=== PATIENT | male | born 1970 | race Caucasian/White ===

== ENCOUNTER 2017-06-05 19:51 | Emergency (ER) | payer OTHER ==
[2017-06-05 20:04] VITALS: TEMP 98.6
[2017-06-05] MEDS ORDERED: SODIUM CHLORIDE 0.9% 1,000 ML IV STA (20:36)
[2017-06-05] MEDS ORDERED: KETOROLAC 30 MG/ML 1 ML VIAL IVP STA (20:36)
--- NOTE | 2017-06-05 20:39 | ED ---
Abdominal Pain HPI - General Chief Complaint: Abdominal Pain Stated Complaint: lower right abdominal pain Time Seen by Provider: 06/05/17 20:30 Source: patient Mode of arrival: ambulatory Limitations: no limitations - History of Present Illness Initial Comments: 46-year-old male patient presents to the emergency department today for complaints of right flank pain. Patient states this started around 1630 this afternoon and lasted until around 1930. He states around 1930 the pain subsided somewhat. States he still has a dull ache in the right flank however the sharp severe pain has on away. He states he did have a similar episode approximate one week ago but it didn't last as long. He states his urine may have been darker. He denies any urinary retention. Denies any frequency or urgency. He denies any fevers or chills. States he did become nauseated with the pain but did not vomit. He denies any constipation or diarrhea. Denies any significant past medical history or use of medications. Patient denies any recent rash, fever, chills, shortness breath, chest pain, numbness, tingling, dizziness, weakness, headache, visual changes, or any other complaints. - Related Data Home Medications Medication Instructions Recorded Confirmed Omeprazole Magnesium [PriLOSEC OTC] 20 mg PO DAILY 06/05/17 06/05/17 Thrive 1 tab PO DAILY 06/05/17 06/05/17 Previous Rx's Medication Instructions Recorded Hydrocodone/Acetaminophen [[place] 1 tab PO Q6HR PRN #15 tab 06/05/17 5-325] Ondansetron [Zofran ODT] 4 mg PO Q8HR PRN #10 tab 06/05/17 Tamsulosin HCl [Flomax] 0.4 mg PO DAILY #7 cap 06/05/17 Allergies Allergy/AdvReac Type Severity Reaction Status Date / Time No Known Allergies Allergy Verified 06/05/17 20:19 Review of Systems ROS Statement: Those systems with pertinent positive or pertinent negative responses have been documented in the HPI. ROS Other: All systems not noted in ROS Statement are negative. Past Medical History Past Medical History: No Reported History History of Any Multi-Drug Resistant Organisms: None Reported Past Surgical History: Orthopedic Surgery Additional Past Surgical History / Comment(s): right hand Past Psychological History: No Psychological Hx Reported Smoking Status: Never smoker Past Alcohol Use History: Rare Past Drug Use History: Marijuana General Exam Limitations: no limitations General appearance: alert, in no apparent distress, other (This is a well- developed, obese male patient no acute distress. Vital signs upon presentation are temperature 98.6F, pulse 71, respirations 18, blood pressure 179/81, pulse ox 99% on room air.) Eye exam: Present: normal appearance, PERRL, EOMI. Absent: scleral icterus, conjunctival injection, periorbital swelling ENT exam: Present: normal exam, normal oropharynx, mucous membranes moist Respiratory exam: Present: normal lung sounds bilaterally. Absent: respiratory distress, wheezes, rales, rhonchi, stridor Cardiovascular Exam: Present: regular rate, normal rhythm, normal heart sounds. Absent: systolic murmur, diastolic murmur, rubs, gallop, clicks GI/Abdominal exam: Present: soft, normal bowel sounds. Absent: distended, tenderness, guarding, rebound, rigid Back exam: Present: normal inspection, CVA tenderness (R). Absent: CVA tenderness (L) Neurological exam: Present: alert, oriented X3, CN II-XII intact Psychiatric exam: Present: normal affect, normal mood Skin exam: Present: warm, dry, intact, normal color. Absent: rash Course Vital Signs 06/05/17 06/05/17 20:01 22:21 Temperature 98.6 F 98.6 F Pulse Rate 71 80 Respiratory 18 16 Rate Blood Pressure 179/81 156/78 O2 Sat by Pulse 99 98 Oximetry Medical Decision Making - Medical Decision Making 46-year-old male patient presented to the emergency department today for complaints of right flank pain. Physical examination did reveal some mild right flank tenderness. Labs reviewed and did reveal an elevated white blood cell count is 16.9, neutrophils are 14.9, creatinine was 1.31, urinalysis showed 1+ protein, large amount of blood, greater than 182 red blood cells, occasional amorphous sediment, occasional urine mucus, and occasional urine sperm. CT of the abdomen and pelvis was obtained and did show 5 mm stone in the right proximal ureter, right-sided hydronephrosis, and mild perinephric edema. I did discuss findings with the patient. Did offer patient admission at this time for IV fluids and pain management, he declines. He is requesting to be discharged. Patient will be started on Flomax, [place], and Zofran. He is instructed to increase fluids. He is instructed to follow-up with urology as soon as possible. He is instructed to return here immediately for any new, worsening, or concerning symptoms. He verbalizes understanding and agrees with this plan. - Lab Data Result diagrams: 06/05/17 20:30 06/05/17 20:30 Lab Results 06/05/17 06/05/17 06/05/17 Range/Units 20:30 20:30 20:30 WBC 16.9 H (3.8-10.6) k/uL RBC 5.08 (4.30-5.90) m/uL Hgb 15.1 (13.0-17.5) gm/dL Hct 45.4 (39.0-53.0) % MCV 89.3 (80.0-100.0) fL MCH 29.7 (25.0-35.0) pg MCHC 33.3 (31.0-37.0) g/dL RDW 12.6 (11.5-15.5) % Plt Count 178 (150-450) k/uL Neutrophils % 88 % Lymphocytes % 6 % Monocytes % 4 % Eosinophils % 1 % Basophils % 0 % Neutrophils # 14.9 H (1.3-7.7) k/uL Lymphocytes # 1.0 (1.0-4.8) k/uL Monocytes # 0.8 (0-1.0) k/uL Eosinophils # 0.2 (0-0.7) k/uL Basophils # 0.0 (0-0.2) k/uL Sodium 143 (137-145) mmol/L Potassium 4.2 (3.5-5.1) mmol/L Chloride 106 (98-107) mmol/L Carbon Dioxide 26 (22-30) mmol/L Anion Gap 11 mmol/L BUN 14 (9-20) mg/dL Creatinine 1.31 H (0.66-1.25) mg/dL Est GFR (MDRD) Af Amer >60 (>60 ml/min/1.73 sqM) Est GFR (MDRD) Non-Af 59 (>60 ml/min/1.73 sqM) Glucose 111 H (74-99) mg/dL Calcium 10.0 (8.4-10.2) mg/dL Total Bilirubin 0.4 (0.2-1.3) mg/dL AST 37 (17-59) U/L ALT 48 (21-72) U/L Alkaline Phosphatase 104 (38-126) U/L Total Protein 7.4 (6.3-8.2) g/dL Albumin 4.4 (3.5-5.0) g/dL Amylase 87 (30-110) U/L Lipase 59 (23-300) U/L Urine Color Yellow Urine Appearance Turbid (Clear) Urine pH 7.0 (5.0-8.0) Ur Specific [place] 1.018 (1.001-1.035) Urine Protein 1+ H (Negative) Urine Glucose (UA) Negative (Negative) Urine Ketones Negative (Negative) Urine Blood Large H (Negative) Urine Nitrite Negative (Negative) Urine Bilirubin Negative (Negative) Urine Urobilinogen <2.0 (<2.0) mg/dL Ur Leukocyte Esterase Negative (Negative) Urine RBC >182 H (0-5) /hpf Amorphous Sediment Occasional H (None) /hpf Urine Mucus Occasional H (None) /hpf Urine Sperm Occasional H (None) /hpf - Radiology Data Radiology results: report reviewed, image reviewed CT the abdomen and pelvis without contrast was obtained, report was reviewed in its entirety. Impression by Dr. Nixon shows small calculus obstructing the right upper collecting system in the proximal right ureter. Normal appendix. Of note is right-sided hydronephrosis and mild. Nephric edema. Calculus is 5 mm in the proximal right ureter. Disposition Clinical Impression: Kidney stone on right side, Hydronephrosis, right, Elevated serum creatinine Disposition: HOME SELF-CARE Condition: Good Instructions: Kidney Stones (ED), How to Strain Your Urine (ED), Hydronephrosis (ED) Additional Instructions: Increase fluids especially water. Take medications as directed. Follow-up with urology as soon as possible. Return here immediately for any new, worsening, or concerning symptoms. Prescriptions: Hydrocodone/Acetaminophen [[place] 5-325] 1 tab PO Q6HR PRN #15 tab PRN Reason: Pain Ondansetron [Zofran ODT] 4 mg PO Q8HR PRN #10 tab PRN Reason: Nausea Tamsulosin HCl [Flomax] 0.4 mg PO DAILY #7 cap Referrals: Elgin Gardner MD [Primary Care Provider] - 1-2 days Matthew Dow MD [STAFF PHYSICIAN] - 1-2 days Time of Disposition: 22:04
[2017-06-05 20:59] LABS: Basophils % (A) 0 %; Eosinophils # (A) 0.2 k/uL (0-0.7); Eosinophils % (A) 1 %; HCT 45.4 % (39.0-53.0); HGB 15.1 gm/dL (13.0-17.5); Lymphocytes % (A) 6 %; MCH 29.7 pg (25.0-35.0); MCHC 33.3 g/dL (31.0-37.0); MCV 89.3 fL (80.0-100.0); Mean Platelet Volume 7.5; Monocytes # (A) 0.8 k/uL (0-1.0); Monocytes % (A) 4 %; Neutrophils # (A) 14.9 k/uL (1.3-7.7); Neutrophils % (A) 88 %; Platelet Count 178 k/uL (150-450); RBC 5.08 m/uL (4.30-5.90); RDW 12.6 % (11.5-15.5); WBC 16.9 k/uL (3.8-10.6)
[2017-06-05 21:05] LABS: Amorphous Sediment,Urine Occasional /hpf; Appearance,Urine Turbid (Clear); Bilirubin,Urine Negative (Negative); Blood,Urine Large (Negative); Color,Urine Yellow; Glucose,Urine (UA) Negative (Negative); Ketones,Urine Negative (Negative); Leukocyte Esterase,Urine Negative (Negative); Mucus,Urine Occasional /hpf; Nitrite,Urine Negative (Negative); Protein,Urine 1+ (Negative); RBC,Urine >182 /hpf (0-5); Specific Gravity,Urine 1.018 (1.001-1.035); Sperm,Urine Occasional /hpf; Urobilinogen,Urine <2.0 mg/dL (<2.0)
[2017-06-05 21:09] LABS: ALT 48 U/L (21-72); AST 37 U/L (17-59); Albumin 4.4 g/dL (3.5-5.0); Alkaline Phosphatase 104 U/L (38-126); Amylase 87 U/L (30-110); Anion Gap 11 mmol/L; Blood Urea Nitrogen 14 mg/dL (9-20); Carbon Dioxide 26 mmol/L (22-30); Chloride 106 mmol/L (98-107); Glucose 111 mg/dL (74-99); Lipase 59 U/L (23-300); Potassium 4.2 mmol/L (3.5-5.1); Sodium 143 mmol/L (137-145); Total Bilirubin 0.4 mg/dL (0.2-1.3); Total Protein 7.4 g/dL (6.3-8.2)
--- NOTE | 2017-06-05 21:37 | CT ---
EXAMINATION TYPE: CT abdomen pelvis wo con DATE OF EXAM: 06/05/2017 COMPARISON: NONE HISTORY: Right flank pain. CT DLP: 1257.7 mGycm Automated exposure control for dose reduction was used. TECHNIQUE: Helical acquisition of images was performed from the lung bases through the pelvis. FINDINGS: Lung bases are clear. There is no pleural effusion. Liver spleen pancreas gallbladder appear normal. Bile ducts are not dilated. There is no adrenal mass. Kidneys have normal size. There is right-sided hydronephrosis and mild rustam nephric edema. There is a 5 mm calculus in the proximal right ureter. There is no ascites. There is no sign of free air. Left kidney appears normal. I see no intestinal wa ll thickening. There are no dilated loops. Appendix appears normal. Bladder distends smoothly. There is no evidence of pelvic mass. There is no free fluid in the pelvis. Bony structures appear intact. T here are spondylotic changes in the lumbar spine. IMPRESSION: SMALL CALCULUS OBSTRUCTING THE RIGHT UPPER COLLECTING SYSTEM IN THE PROXIMAL RIGHT URETER. NORMAL PANFILO ENDIX.
[2017-06-05] MEDS ORDERED: TAMSULOSIN 0.4 MG CAP.ER.24H PO STA (22:01)
[2017-06-05] MEDS ORDERED: ONDANSETRON 4 MG ODT STARTER PACK 2 TAB BTL PO STA (22:01)
[2017-06-05] MEDS ORDERED: ACET/COD 300 MG/30 MG STARTER PACK 6 TAB BTL PO STA (22:01)
[2017-06-05 22:22] VITALS: BP 156/78; PULSE 80; RESP 16
== END 2017-06-05 22:21 | disposition home or self-care (01) ==
LOC: EC 19:51
DX: N13.2 Hydronephrosis with renal and ureteral calculous obstruction (principal); R79.89 Other specified abnormal findings of blood chemistry; Z79.899 Other long term (current) drug therapy
CPT/HCPCS: 36415; 80053; 82150; 83690; 85025; 81001; 74176; 99284; 96374; 96361; J1885; S0119

== ENCOUNTER 2017-06-15 20:47 | Emergency (ER) | payer OTHER ==
[2017-06-15 20:59] VITALS: TEMP 98.5
--- NOTE | 2017-06-15 21:31 | ED ---
Lower Extremity Injury HPI - General Chief Complaint: Extremity Injury, Lower Stated Complaint: Ankle injury Time Seen by Provider: 06/15/17 21:00 Source: patient, RN notes reviewed Mode of arrival: wheelchair Limitations: no limitations - History of Present Illness Initial Comments: This is a 46-year-old male who presents to the emergency department with chief complaint of right ankle injury. Patient states that he slipped on ice approximately 20 minutes prior to arrival and twisted his right ankle. at bedside states that patient's left foot was pointed forward and his right foot was pointed out to the right after his fall. Patient states pain is localized to the distal dixon area. He states he is unable to ambulate due to pain. Denies any other injuries or trauma. Patient declines pain medication, stating that he had approximately 10 drinks prior to arrival so is not experiencing any pain. Denies fever, chills, chest pain, shortness of breath, abdominal pain, nausea or vomiting, constipation or diarrhea, dysuria or hematuria, numbness or tingling, headache or vision changes. - Related Data Home Medications Medication Instructions Recorded Confirmed Omeprazole Magnesium [PriLOSEC OTC] 20 mg PO DAILY 06/05/17 06/05/17 Thrive 1 tab PO DAILY 06/05/17 06/05/17 Previous Rx's Medication Instructions Recorded Hydrocodone/Acetaminophen [[place] 1 tab PO Q6HR PRN #15 tab 06/05/17 5-325] Ondansetron [Zofran ODT] 4 mg PO Q8HR PRN #10 tab 06/05/17 Tamsulosin HCl [Flomax] 0.4 mg PO DAILY #7 cap 06/05/17 HYDROcodone/APAP 5-325MG [[place] 5] 1 each PO Q6HR PRN #12 tab 06/15/17 Allergies Allergy/AdvReac Type Severity Reaction Status Date / Time No Known Allergies Allergy Verified 06/15/17 20:59 Review of Systems ROS Statement: Those systems with pertinent positive or pertinent negative responses have been documented in the HPI. ROS Other: All systems not noted in ROS Statement are negative. Past Medical History Past Medical History: No Reported History History of Any Multi-Drug Resistant Organisms: None Reported Past Surgical History: Orthopedic Surgery Additional Past Surgical History / Comment(s): right hand Past Psychological History: No Psychological Hx Reported Smoking Status: Never smoker Past Alcohol Use History: Rare Past Drug Use History: Marijuana General Exam - General Exam Comments Initial Comments: General: Awake and alert, well-developed; in no apparent distress. is at bedside. Patient is in a wheelchair and unable to ambulate. HEENT: Head atraumatic, normocephalic. Pupils are equal, round and reactive to light. Extraocular movements intact. Oropharynx moist without erythema or exudate. Neck: Supple. Normal ROM. Cardiovascular: Regular rate and rhythm. No murmurs, rubs or gallops. Chest symmetrical. Respiratory: Lungs clear to auscultation bilaterally. No wheezes, rales or rhonchi. Normal respiratory effort with no use of accessory muscles. Musculoskeletal: Limited range of motion of the right ankle due to pain. There is tenderness on palpation and swelling of right distal dixon. No medial or lateral malleoli tenderness. Sensation is intact. Pedal pulses are 2+ equal and palpable bilaterally. Skin: [place], warm and dry without rashes or lesions. Neurological: Alert and oriented x3. CN II-XII grossly intact. Speech is fluent and answers are appropriate. No focal neuro deficits. Psychiatric: Normal mood and affect. No overt signs of depression or anxiety noted. Limitations: no limitations Course Vital Signs 06/15/17 20:57 Temperature 98.5 F Pulse Rate 78 Respiratory 18 Rate Blood Pressure 144/73 O2 Sat by Pulse 98 Oximetry Procedures - Orthopedic Splinting/Casting Injury #1 Side: right Lower Extremity Injury Location: short leg Lower Extremity Immobilizer: posterior splint, stirrup splint, synthetic pre- padded splint Additional Comments: Stirrup and posterior OCL splints were placed. Patient tolerated well and is neurovascularly intact. Medical Decision Making - Medical Decision Making This is a 46-year-old male who presents to the emergency department for evaluation of right ankle injury. Patient sustained spiral fractures to his distal tibia and proximal fibula. Posterior and ankle stirrup OCL short-leg splints were placed and patient tolerated well without complication. He is neurovascularly intact. Patient is to [facility] as soon as possible. He is provided with a prescription for crutches as well as pain medication. He is provided with the disc of his x-rays. Patient will be discharged home. He is in no acute distress. This case was discussed with attending physician, Dr. Clayton. Patient is in agreement with plan and voices understanding. All questions were answered. - Radiology Data Radiology results: report reviewed X-ray right ankle findings: There is a spiral fracture of the distal shaft of the tibia. Ankle mortise is anatomic. There is no dislocation. There is possible 5 mm nondisplaced chip fracture of the medial malleolus. There are plantar and Achilles calcaneal spurs. Impression: Spiral fracture of the tibia. Possible tiny chip fracture of the medial malleolus. X-ray right tibia and fibula findings: There is a spiral fracture of the distal shaft of the tibia. There is displacement up to 7 mm laterally of the distal fragment. There is an oblique spiral fracture of the proximal shaft of the fibula with separation of the fragments up to 8 mm. There are plantar and Achilles calcaneal spurs. There is no dislocation. Impression: Spinal fractures of the distal tibia and proximal fibula. Disposition Clinical Impression: Fracture of tibia, distal, right, closed, Closed fracture of fibula, proximal, right Disposition: HOME SELF-CARE Condition: Good Instructions: Leg Fracture (ED), Ankle Fracture (ED) Additional Instructions: Please follow-up with Dr. [facility] within 1-2 days. Please do not bear weight on the right leg. Please keep splint clean, dry and intact. Please take medications as prescribed. Please follow up with primary care provider within 1-2 days. Return to emergency department if symptoms should worsen or any concerns arise. Prescriptions: HYDROcodone/APAP 5-325MG [[place] 5] 1 each PO Q6HR PRN #12 tab PRN Reason: Pain Referrals: Elgin Gardner MD [Primary Care Provider] - 1-2 days Time of Disposition: 22:06
--- NOTE | 2017-06-15 21:57 | XR ---
EXAMINATION TYPE: XR tibia fibula RT DATE OF EXAM: 06/15/2017 COMPARISON: NONE HISTORY: Slipped on the ice and fell. Pain. TECHNIQUE: 2 view FINDINGS: There is a spiral fracture of the distal shaft of the tibia. There is displacement up to 7 mm laterally of the distal fragment. There is a oblique spiral fracture of the proximal shaft of the fibula with separation of the fragments up to 8 mm. There are plantar and Achilles calcaneal spurs. T here is no dislocation. IMPRESSION: Spiral fractures of the distal tibia and proximal fibula.
--- NOTE | 2017-06-15 21:58 | XR ---
EXAMINATION TYPE: XR ankle complete RT DATE OF EXAM: 06/15/2017 COMPARISON: NONE HISTORY: Pain TECHNIQUE: 3 views FINDINGS: There is a spiral fracture of the distal shaft of the tibia. The ankle mortise is anatomic. There is no dislocation. There is possible 5 mm nondisplaced chip fracture of the medial malleolus. There are plantar and Achilles calcaneal spurs. IMPRESSION: Spiral fracture of the tibia. Possible tiny chip fracture of the medial malleolus.
[2017-06-15 22:28] VITALS: BP 152/83; PULSE 68; RESP 16
== END 2017-06-15 22:28 | disposition home or self-care (01) ==
LOC: EC 20:47
DX: S82.301A Unspecified fracture of lower end of right tibia, initial encounter for closed fracture (principal); S82.831A Other fracture of upper and lower end of right fibula, initial encounter for closed fracture; M77.31 Calcaneal spur, right foot; Z79.899 Other long term (current) drug therapy; W00.0XXA Fall on same level due to ice and snow, initial encounter
CPT/HCPCS: 29515; 99283

== ENCOUNTER → 2017-06-20 | Outpatient (CLI) | payer OTHER ==
--- NOTE | 2017-06-20 10:01 | CT ---
EXAMINATION TYPE: CT lower leg RT wo con DATE OF EXAM: 06/20/2017 COMPARISON: Radiograph 06/15/2017 HISTORY: 46-year-old male with right Tibia/Fibula fx TECHNIQUE: Contiguous axial scanning of the right tibia/fibula without IV contrast. Coronal and sagit lupe reconstructions performed. 3-D reconstructions generated on a dedicated independent workstation. CT DLP: 878.9 mGycm Automated exposure control for dose reduction was used. FINDINGS: There is an oblique fracture of the proximal fibular shaft with 1.3 cm of anterior displacement. In addition, there is an oblique fracture of the distal tibial shaft with 7 mm of lateral displacemen t and 9 mm of posterior displacement. There is a 2.1 x 1.1 cm comminuted fracture fragment along the posterior inferior margin of the fracture. No fracture extension to either knee or ankle joints. There is some bony spurring along the inferior aspect of the medial and lateral malleoli suggesting a denopathy. Talar dome is intact. No additional acute fracture is identified. Subcutaneous soft tissue swelling diffusely throughout the leg. Overlying plaster cast. Small knee joint effusion. IMPRESSION: 1. LONG [place]BLIQUE FRACTURE OF THE PROXIMAL FIBULAR SHAFT WITH 1.3 CM OF ANTERIOR DISPLACEMENT. 2. OBLIQUE FRACTURE OF THE DISTAL TIBIA WITH MILD LATERAL AND POSTERIOR DISPLACEMENT OF UP TO 9 MM. A SMALL 2.1 CENTIMETER COMMINUTED FRACTURE FLAGMEN ALONG THE POSTERIOR INFERIOR MARGIN. 3. NO INTRA-ARTICULAR EXTENSION OF FRACTURES.
== END | disposition home or self-care (01) ==
LOC: RADCTMAIN 08:30
PROVIDERS: ATTEND Orthopaedic Surgery Sports Medicine
DX: S82.391A Other fracture of lower end of right tibia, initial encounter for closed fracture (principal); S82.431A Displaced oblique fracture of shaft of right fibula, initial encounter for closed fracture; S82.251A Displaced comminuted fracture of shaft of right tibia, initial encounter for closed fracture; S70.01XA Contusion of right hip, initial encounter

== ENCOUNTER 2017-06-22 12:19 | Observation (INO) | payer OTHER ==
[~2017-06-22 12:19] MED LIST: ACETAMINOPHEN TAB 500 MG TAB PO ONE; DEXAMETHASONE SOD PHOSPHATE 10 MG/ML 1 ML VIAL IV ONE; MIDAZOLAM 2 MG/2 ML VIAL IV PRN; MORPHINE SULFATE 4 MG/ML SYRINGE IV PRN; ONDANSETRON 4 MG/2 ML VIAL IVP ONE; SCOPOLAMINE 1.5MG/72HR PATCH TRANSDERM ONE
[2017-06-22] MEDS: LACTATED RINGERS 1,000 ML IV SCH ×2 (13:15→21:32)
[2017-06-22] MEDS ORDERED: LIDOCAINE 1% 20 ML VIAL (10MG/ML) FOR IV START INTRADERMA ONE (13:18)
[2017-06-22] MEDS ORDERED: SUCCINYLCHOLINE CHLORIDE 100 MG/5 ML SYR IV ONE (15:25)
[2017-06-22] MEDS ORDERED: fentaNYL (PF) 50 MCG/ML 2 ML AMP ONE (15:25)
[2017-06-22] MEDS ORDERED: MIDAZOLAM 2 MG/2 ML VIAL ONE (15:25)
[2017-06-22] MEDS ORDERED: NEOSTIGMINE 1 MG/ML 10 ML VIAL ONE (15:25)
[2017-06-22] MEDS ORDERED: HYDROmorphone (PF) 1 MG/ML ONE (15:25)
[2017-06-22] MEDS ORDERED: ROCURONIUM BROMIDE 10 MG/ML 10 ML VIAL IV ONE (15:25)
[2017-06-22] MEDS ORDERED: LIDOCAINE 1% INJ 10MG/ML (20 ML MDV) ONE (15:25)
[2017-06-22] MEDS ORDERED: GLYCOPYRROLATE 0.2 MG/ML 2 ML VIAL ONE (15:25)
[2017-06-22] MEDS ORDERED: PROPOFOL 10 MG/ML 20 ML VIAL IV ONE (15:25)
[2017-06-22] MEDS ORDERED: HYDROmorphone 0.5 MG/0.5 ML SYRINGE IVP PRN ×2 (17:01)
[2017-06-22] MEDS ORDERED: TEMAZEPAM 15 MG CAP PO PRN (17:01)
[2017-06-22] MEDS ORDERED: diphenhydrAMINE 25 MG CAP PO PRN (17:01)
[2017-06-22] MEDS ORDERED: ONDANSETRON 4 MG/2 ML VIAL IVP PRN (17:01)
[2017-06-22] MEDS ORDERED: PROCHLORPERAZINE SUPPOSITORY 25 MG SUPP RECTAL PRN (17:01)
[2017-06-22] MEDS ORDERED: METOCLOPRAMIDE 5 MG/ML 2 ML VIAL IVP PRN (17:01)
[2017-06-22] MEDS ORDERED: SENNOSIDES-DOCUSATE SODIUM 1 EACH TAB PO PRN (17:01)
[2017-06-22] MEDS ORDERED: HYDROcodone/APAP 7.5-325MG 1 EACH TAB PO PRN (17:06)
[2017-06-22] MEDS ORDERED: LACTATED RINGERS 1,000 ML IV ONE (17:47)
[2017-06-22] MEDS ORDERED: HYDROmorphone 0.5 MG/0.5 ML SYRINGE IVP ONE ×4 (18:26→20:26)
--- NOTE | 2017-06-22 18:32 | P.OP ---
Date of Procedure: 06/22/17 Preoperative Diagnosis: 1. Closed right spiral distal third tibia fracture 2. Closed right proximal fibula fracture Postoperative Diagnosis: Same Procedure(s) Performed: 1. Open reduction and internal fixation of right distal third tibial shaft fracture 2. Nonoperative management right proximal fibula fracture 3. Manual application of joint stress by physician for radiography 4. Application of short leg splint by physician Anesthesia: MEGHAN Surgeon: Pelon Saenz Mint Wafer Depositor #1: Bran Jaime Estimated Blood Loss (ml): 50 IV fluids (ml): 1,700 Pathology: none sent Condition: stable Disposition: PACU Indications for Procedure: The patient is a very pleasant 46-year-old male who sustained an isolated injury to his right leg when he fell down the steps at a restaurant last weekend. He presented to the emergency department and was diagnosed with a tibial shaft fracture. He was placed in a splint and sent to our office from the ER. He was initially seen in the office by my partner Dr. Sheffield. Dr. Sheffield discussed with the patient that the fracture required surgery and asked for my assistance. A computed tomography scan was obtained which showed the fracture was extra-articular with no posterior malleolus fragment. Dr. Sheffield scheduled the patient for surgery and asked for my assistance. I agreed to perform the surgery. The patient and his are offered to come and see me in the office before the surgery to discuss the procedure in detail but they declined, agreeing to meet in the preoperative holding area. I met with the patient and his in preoperative holding to discussed potential risks and complication of surgery including but not limited to risk of anesthesia, risk of superficial infection, risk of deep infection, risk of delayed wound healing , risk of damage to local sensory nerves, risk of damage to local tenderness structures, risk of damage to local blood vessels, risk of fracture nonunion, risk of fracture malunion, risk of intraoperative fracture, risk of postoperative fracture, risk of postoperative compartment syndrome, risk of DVT , risk of PE, risk of synthetic hardware, risk posterior medical arthritis, risk of chronic pain, risk of difficulty ambulate following surgery, risk of inability to regain preinjury level of function, risk of generalized to satisfaction with surgery, risk of need for further surgery, risk of postoperative medical complications, and possibly loss of life or limb. The patient and his understand all these are the most common complications there are other less common complications possible. They provided their verbal and written consent to go forward with surgery. Description of Procedure: The patient was identified in preoperative holding and the correct right leg was marked with my initials. I reviewed the consent form with the patient and his in all of their questions were answered. The patient was then brought back to the operating room by anesthesia. He was positioned on the OR table and a general anesthetic and preoperative antibiotics were administered. A tourniquet was applied to the proximal aspect the right thigh. The left leg was secured to the table with foam and tape. A bump was placed under the right buttock internally rotating the leg to neutral. The right leg had a ramp placed under it to facilitate imaging. The right arm was draped across the body with a towel. The right leg was then prepped and draped in standard sterile fashion. Prior to starting surgery timeout was performed identifying the correct patient, operative extremity, and procedure. The patient's leg was then elevated, exsanguinated with an Esmarch bandage, and the tourniquet was inflated to 250 mmHg. I began by outlining an incision for an anterolateral approach to the distal tibia. Skin incision was made over the lateral margin of the distal tibia and extended distally over the ankle joint in line with the fourth ray. Skin incision was made with a 15 blade scalpel. Dissection was carried down carefully through subcutaneous tissue with tenotomy scissors. The superficial peroneal nerve was identified and carefully retracted. The retinaculum was incised in line with the skin incision. The distal tibia is then identified. A small stab incision was made over the medial aspect of the tibia and I attempted to reduce the fracture with a combination of longitudinal traction, rotation, and a ptldw-qp-hvbzk reduction clamp. I was unable to lowe the fracture in medially so the small stab incision was extended to allow visualization of the medial cortex. There was periosteum and soft tissue within the fracture which was gently removed. I was then able to anatomically reduce and lowe the fracture into place. A aseto-cb-kxpcl reduction clamp was placed. I then placed 2 lag screws through the medial tibia into the distal fragment. A 3.5 mm drill bit was used to create a gliding hole in the medial cortex of the tibia and a 2.5 mm drill bit was used to create threaded holes in the distal shaft fragment. 3.5 mm lag screws were then placed generating excellent compression across the fracture site. A K wire was also placed across the fracture to help hold reduction. The hqqat-qg-kkbxg reduction clamp was then removed and the reduction held. I then used a soft tissue elevator to elevate a path along the proximal, lateral shaft of the tibia for an anterolateral precontoured plate. An anterolateral plate was then gently inserted proximally under the anterior compartment musculature. The position of the plate was verified and then secured with K wires distally. I then placed a nonlocking 3.5 mm screw through the most proximal hole of the plate using a stab incision and C-arm to bring the plate down to bone proximally, making sure it was centered on the bone. I then proceeded to place 4 nonlocking screws in the most distal row of the plate. I then placed 2 locking screws in the more proximal distal row. I then proceeded to place an additional 2 nonlocking screws proximal to the fracture through stab incisions using fluoroscopy. I then verified reduction with fluoroscopy in both the AP and lateral plane. The fracture appeared to be in acceptable position. The hardware also appeared to be in an acceptable position. Due to the fracture pattern I also performed a manual external rotation stress x-ray. With the ankle and a mortise view I applied an external rotation force to the ankle and there was no widening of the medial clear space or incise dura. I interpreted this is a stable syndesmosis. All wounds were then copiously irrigated. The stab incisions proximally were closed with interrupted 3-0 nylon horizontal mattress stitches. The retinaculum was closed with interrupted 0 Vicryl. The deep subcu was reapproximated using 2-0 Vicryl. The skin was closed with 3-0 nylon horizontal mattress stitches. The small incision medially was closed with 2-0 Vicryl subcu and 3-0 nylon horizontal mattress stitches for the skin. I verified that all instrument, sponge, and sharp counts were correct. The tourniquet was then let down with a total tourniquet time of 111 minutes. After the tourniquet was let down and the toes were warm and all muscle compartments in the calf are soft. A well-padded bulky Gomez splint was placed with the ankle in neutral. The patient was then awoken from his anesthetic, transferred from the OR table to [facility], and brought to PACU having tolerated the procedure well. Bran Jaime PA-C was required as a skilled librarian assistant for patient positioning, surgical retraction, fracture reduction, placement of hardware, closure of surgical wounds, and application of splint Plan: The patient is going to be admitted for pain control and IV antibiotics. He can discharge home when his pain is adequately controlled and he passes physical therapy.
[2017-06-22] MEDS ORDERED: MEPERIDINE 50 MG/ML SYRINGE IVP ONE ×2 (18:43→19:43)
[2017-06-22] MEDS ORDERED: hydrALAZINE HCL 20 MG/ML 1 ML VIAL IVP ONE (18:58)
[2017-06-22] MEDS ORDERED: LABETALOL 5 MG/ML VIAL MDV IVP ONE (19:28)
[2017-06-22] MEDS: HYDROmorphone 0.5 MG/0.5 ML SYRINGE IVP PRN (21:31)
[2017-06-22] MEDS: HYDROcodone/APAP 7.5-325MG 1 EACH TAB PO PRN (23:18)
[2017-06-22 23:47] VITALS: BMI 36.2
[2017-06-23] MEDS ORDERED: ceFAZolin 3 GM in SODIUM CHLORIDE 0.9% 100 ML IVPB SCH ×2
[2017-06-23] MEDS: HYDROmorphone 0.5 MG/0.5 ML SYRINGE IVP PRN ×7 (00:47→23:07)
[2017-06-23] MEDS: HYDROcodone/APAP 7.5-325MG 1 EACH TAB PO PRN (02:40)
[2017-06-23] MEDS: LACTATED RINGERS 1,000 ML IV SCH ×5 (03:41→23:54)
[2017-06-23 07:44] LABS: Basophils % (A) 0 %; Eosinophils # (A) 0.2 k/uL (0-0.7); Eosinophils % (A) 1 %; HCT 39.1 % (39.0-53.0); HGB 12.5 gm/dL (13.0-17.5); Lymphocytes # (A) 1.4 k/uL (1.0-4.8); Lymphocytes % (A) 9 %; MCH 28.6 pg (25.0-35.0); MCHC 31.9 g/dL (31.0-37.0); MCV 89.6 fL (80.0-100.0); Monocytes # (A) 1.2 k/uL (0-1.0); Monocytes % (A) 8 %; Neutrophils # (A) 11.7 k/uL (1.3-7.7); Neutrophils % (A) 80 %; Platelet Count 208 k/uL (150-450); RBC 4.36 m/uL (4.30-5.90); RDW 12.1 % (11.5-15.5); WBC 14.6 k/uL (3.8-10.6)
[2017-06-23] MEDS: hydrOXYzine PAMOATE 25 MG CAP PO PRN ×2 (09:45→18:47)
[2017-06-23] MEDS: ENOXAPARIN 40 MG/0.4 ML SYRINGE SQ SCH (09:59)
[2017-06-23] MEDS ORDERED: HYDROcodone/APAP 10-325MG 1 EACH TAB PO PRN (11:43)
[2017-06-23] MEDS: HYDROcodone/APAP 10-325MG 1 EACH TAB PO PRN ×2 (12:30→18:47)
--- NOTE | 2017-06-23 13:41 | FL ---
EXAMINATION TYPE: FL guidance operating room, XR tibia fibula RT DATE OF EXAM: 06/22/2017 CLINICAL HISTORY: Right leg fractures TECHNIQUE: Fluoroscopy. COMPARISON: None. FINDINGS: Fluoroscopic guidance was provided during open reduction internal fixation procedure perfo rmed by Dr. Saenz. A total of 2 minutes 56 seconds of fluoroscopic time was utilized during the p rocedure and 3 spot intraoperative images are acquired. Images acquired show placement of anterior fusion plate with 3 proximal and 2 distal fixating screws as well as 2 additional medial screws through comminuted fracture distal tibial metadiaphysis. Improv ed alignment is seen on intraoperative images provided. IMPRESSION: As Above.
[2017-06-24] MEDS: HYDROcodone/APAP 10-325MG 1 EACH TAB PO PRN ×3 (00:41→12:37)
[2017-06-24] MEDS: hydrOXYzine PAMOATE 25 MG CAP PO PRN ×3 (00:41→12:38)
[2017-06-24] MEDS: HYDROmorphone 0.5 MG/0.5 ML SYRINGE IVP PRN (03:10)
[2017-06-24] MEDS: ENOXAPARIN 40 MG/0.4 ML SYRINGE SQ SCH (07:05)
[2017-06-24 07:21] VITALS: BP 160/92; PULSE 87; RESP 16; TEMP 99.1
--- NOTE | 2017-06-24 08:50 | P.DS ---
Providers Date of admission: 06/23/17 04:00 Expected date of discharge: 06/24/17 Attending physician: Pelon Saenz Primary care physician: Stated None - Discharge Diagnosis(es) (1) Closed fracture of fibula, proximal, right Current Visit: No Status: Acute (2) Fracture of tibia, distal, right, closed Current Visit: No Status: Acute Hospital Course: This is a 46-year-old male who sustained a tibial shaft fracture to the right leg after a fall one week ago. The patient presents for evaluation. After discussion and consideration patient elects to proceed with open reduction and internal fixation of right distal third tibial shaft fracture, nonoperative management right proximal fibula fracture. The patient is seen preoperatively by Dr. Saenz and cleared for surgery. Patient is admitted to [facility] on 06/22/2017 for open reduction and internal fixation of right distal third tibial shaft fracture. The procedures performed without complication or sequelae. The patient is doing well postoperatively. Labs and vital signs are stable on day of discharge. Patient states his pain is well controlled. On day of discharge patient's splint is clean, dry and intact. Patient is able to wiggle the toes of the right foot. Capillary refill is normal at less than 2 seconds. Sensation intact to the right foot. Neurovascular status to the right lower extremity is intact. Patient is discharged home in good condition. Please see med rec for accurate list of home medications. Plan - Discharge Summary Discharge Rx Participant: Yes New Discharge Prescriptions: New HYDROcodone/APAP 10-325MG [Doswell 10-325] 1 - 2 tab PO Q4-6H PRN #90 tab PRN Reason: Pain Aspirin 325 mg PO BID #60 tab No Action HYDROcodone/APAP 7.5-325MG [Doswell 7.5-325] 2 tab PO Q4-6H PRN PRN Reason: Pain Discharge Medication List HYDROcodone/APAP 7.5-325MG [Doswell 7.5-325] 2 tab PO Q4-6H PRN 06/21/17 [History] Aspirin 325 mg PO BID #60 tab 06/23/17 [Rx] HYDROcodone/APAP 10-325MG [Doswell 10-325] 1 - 2 tab PO Q4-6H PRN #90 tab [Rx] Follow up Appointment(s)/Referral(s): Pelon Saenz MD [Medical Doctor] - 10 Days Activity/Diet/Wound Care/Special Instructions: Keep splint intact. Nonweightbearing right lower extremity with walker or crutches. Discharge Disposition: HOME SELF-CARE
[2017-06-24] MEDS: LACTATED RINGERS 1,000 ML IV SCH (10:17)
[2017-06-24] MEDS ORDERED: HYDROmorphone 4 MG TABLET PO PRN (10:59)
[2017-06-24] MEDS ORDERED: HYDROmorphone 2 MG TAB PO PRN ×2 (10:59→11:00)
== END 2017-06-24 12:50 | disposition home or self-care (01) ==
LOC: OR 12:19 → 3SUR 20:38 → OR 06-23 04:00
PROVIDERS: ADMIT Orthopaedic Surgery; ATTEND Orthopaedic Surgery
DX: S82.241A Displaced spiral fracture of shaft of right tibia, initial encounter for closed fracture (principal); S82.491A Other fracture of shaft of right fibula, initial encounter for closed fracture; S70.01XA Contusion of right hip, initial encounter; W00.2XXA Other fall from one level to another due to ice and snow, initial encounter; Z83.3 Family history of diabetes mellitus
CPT/HCPCS: 27758; 97161; 85025; 82306; 73590; G0378 ×2; C1713; J2250; J0360; J1100; J2710; J2175; J0690 ×2; J2405; J2001; J1650 ×2; J3010; J1170 ×4; J0330; J2704

== ENCOUNTER → 2021-09-14 | Outpatient (CLI) | payer OTHER ==
[2021-09-14 18:59] LABS: C Reactive Protein <0.30 mg/dL (0.00-0.80); Rheumatoid Factor, Qnt <10 IU/mL (0-15)
[2021-09-15 13:55] LABS: C-ANCA <1:20 Titer (<1:20)
== END | disposition home or self-care (01) ==
LOC: LABWHC1 11:36
PROVIDERS: ATTEND Internal Medicine Critical Care Medicine
DX: J98.4 Other disorders of lung (principal)
CPT/HCPCS: 36415; 85652; 86038; 86140; 86255; 86431